=== PATIENT | female | born 1995 | race American Indian/Alaskan Native ===

== ENCOUNTER 2017-11-15 11:30 | Emergency (ER) | payer BC ==
[2017-11-15 11:39] VITALS: BP 109/65
[2017-11-15 12:43] LABS: Bacteria,Urine 1+ /HPF (Negative); Bilirubin,Urine NEG (Negative); Blood,Urine NEG (Negative); Color,Urine Yellow (Yellow); Protein,Urine <15 mg/dL mg/dL (Negative); Urobilinogen,Urine < 2.0 mg/dL (<2.0)
[2017-11-15 12:45] LABS: HCG Qualitative,Urine Negative (Negative)
--- NOTE | 2017-11-15 13:05 | Emergency Department Report ---
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 Patient states that 4 days ago she was in a dance class and during a dance class she started having intense back pain where she was not able to move for approximately 1 hour. Patient states that pain then began to subside but she's had a continuous soreness in the lower back that is causing her to limp for the last several days. Patient denies any radiation down either leg there's no urinary incontinence or urinary retention or fecal incontinence present. Patient denies any fever or abdominal pain or urinary symptoms at this time. Patient rates the pain a 5 out of 10 currently first worse when she is sitting upright. - Related Data Previous Rx's Medication Instructions Recorded Last Taken Type Ibuprofen [Motrin] 600 mg PO Q8H PRN #20 tablet 11/15/17 Unknown Rx methOCARBAMOL [Robaxin TAB] 500 mg PO Q6H PRN #15 tablet 11/15/17 Unknown Rx traMADol [Ultram] 50 mg PO Q6HR PRN #12 tablet 11/15/17 Unknown Rx Allergies Allergy/AdvReac Type Severity Reaction Status Date / Time No Known Allergies Allergy Unverified 11/15/17 11:39 ED Review of Systems ROS: Stated complaint: BACK PAIN Other details as noted in HPI Comment: All other systems reviewed and negative ED Back Pain Physical Exam - Exam General: Vital signs noted. No distress. Alert and acting appropriately. Back/Abdomen: Yes Perilumbar Tenderness, No Abdominal Tenderness, No Perithoracic Tenderness, No Sacroiliac Tenderness, No Flank Tenderness, No Straight Leg Raise Pain Neuro: Yes Normal Sensation, Yes Normal DTR's, Yes Normal Gait, No Motor Weakness ED Course Vital Signs 11/15/17 11:36 Temperature 98.3 F Pulse Rate 74 Respiratory 18 Rate Blood Pressure 109/65 O2 Sat by Pulse 100 Oximetry ED Medical Decision Making - Lab Data Lab Results 11/15/17 Range/Units 12:10 Urine Color Yellow (Yellow) Urine Turbidity Hazy (Clear) Urine pH 7.0 (5.0-7.0) Ur Specific [place] 1.017 (1.003-1.030) Urine Protein <15 mg/dl (Negative) mg/dL Urine Glucose (UA) Neg (Negative) mg/dL Urine Ketones Neg (Negative) mg/dL Urine Blood Neg (Negative) Urine Nitrite Neg (Negative) Urine Bilirubin Neg (Negative) Urine Urobilinogen < 2.0 (<2.0) mg/dL Ur Leukocyte Esterase Neg (Negative) Urine WBC (Auto) 1.0 (0.0-6.0) /HPF Urine RBC (Auto) 1.0 (0.0-6.0) /HPF U Epithel Cells (Auto) 3.0 (0-13.0) /HPF Urine Bacteria (Auto) 1+ (Negative) /HPF Urine HCG, Qual Negative (Negative) - Medical Decision Making The patient's urinalysis rules out any urinary or related issues. Patient will be treated for muscular skeletal back pain and will be discharged home. Critical care attestation.: If time is entered above; I have spent that time in minutes in the direct care of this critically ill patient, excluding procedure time. ED Disposition Clinical Impression: Lumbago Qualifiers: Chronicity: acute Back pain laterality: unspecified Sciatica presence: without sciatica Qualified Code(s): M54.5 - Low back pain Disposition: - TO HOME OR SELFCARE Is pt being admited?: No Does the pt Need Aspirin: No Condition: Stable Instructions: Low Back Strain (ED) Referrals: PRIMARY CARE, [Primary Care Provider] - 3-5 Days
== END 2017-11-15 13:18 | disposition home or self-care (01) ==
LOC: ED 11:30
DX: M54.5 Low back pain (principal)
CPT/HCPCS: 81001; 81025; 99283